=== PATIENT | male | born 1985 | race Caucasian/White ===

== ENCOUNTER 2020-08-22 12:26 | Outpatient (CLI) | payer MEDICARE, MEDICAID, SELFPAY | END 2020-08-22 12:27 | disposition home or self-care (01) | LOC: ANHBWCAUD 12:28 | PROVIDERS: PCP Family Medicine; Visit Provider Family Medicine | DX: H90.3 Sensorineural hearing loss, bilateral (principal) | CPT/HCPCS: 92553; 92555; 92567 ==

== ENCOUNTER 2021-09-23 13:31 | Outpatient (CLI) | payer MEDICARE, MEDICAID, SELFPAY | END 2021-09-23 13:32 | disposition home or self-care (01) | LOC: ANHBWCAUD 13:31 | PROVIDERS: PCP Family Medicine; Visit Provider Family Medicine | DX: H91.93 Unspecified hearing loss, bilateral (principal) | CPT/HCPCS: 92553; 92555; 92567 ==

== ENCOUNTER 2022-09-15 13:47 | Outpatient (CLI) | payer MEDICARE, MEDICAID, SELFPAY | END 2022-09-15 13:48 | disposition home or self-care (01) | PROVIDERS: PCP Family Medicine; Visit Provider Family Medicine | DX: H90.3 Sensorineural hearing loss, bilateral (principal) | CPT/HCPCS: 92553; 92555; 92567 ==

== ENCOUNTER 2025-05-29 08:55 | Outpatient (CLI) | payer MEDICARE, MEDICAID, SELFPAY | END 2025-05-29 08:56 | disposition home or self-care (01) | LOC: ANHBWCAUD 08:58 | PROVIDERS: PCP Family Medicine; Visit Provider Family Medicine | DX: Z01.118 Encounter for examination of ears and hearing with other abnormal findings (principal); H90.3 Sensorineural hearing loss, bilateral | CPT/HCPCS: 92553; 92555; 92567 ==